=== PATIENT | female | born 1960 | race Two or more races ===

== ENCOUNTER 2020-01-03 13:58 | Emergency (ER) | payer OTHER ==
[2020-01-03] MEDS ORDERED: VALACYCLOVIR HCL 500 MG TABLET PO ONE (14:57)
--- NOTE | 2020-01-03 14:59 | ER Document Report ---
HPI - HPI Patient complains to provider of: rash to perineum Time Seen by Provider: 01/03/20 14:20 Onset: Last week Onset/Duration: Persistent Quality of pain: Burning Pain Level: 2 Context: Patient presents complaining of discomfort with rash to the perineum for the past week. Patient denies any fever, nausea or vomiting. Patient denies any concerns about STI. Patient states she was using [id number] yeast infection cream without improvement of her symptoms. Associated Symptoms: Other - Rash to perineum. denies: Nausea, Vomiting Exacerbated by: Denies Relieved by: Denies Similar symptoms previously: No Recently seen / treated by doctor: No - ROS ROS below otherwise negative: Yes Systems Reviewed and Negative: Yes All other systems reviewed and negative - CONSTITUTIONAL Constitutional: DENIES: Fever - GASTROINTESTINAL Gastrointestinal: DENIES: Abdominal Pain, Nausea - URINARY Urinary: DENIES: Dysuria - DERM Skin Color: Normal Skin Problems: Rash Past Medical History - General Information source: Patient - Social History Smoking Status: Current Every Day Smoker Frequency of alcohol use: None Drug Abuse: None Lives with: Family Family History: Reviewed & Not Pertinent Pulmonary Medical History: Reports: Hx Asthma Surgical Hx: Negative Vertical Provider Document - CONSTITUTIONAL Agree With Documented VS: Yes Exam Limitations: No Limitations General Appearance: WD/WN, No Apparent Distress - HEENT HEENT: Atraumatic, Normocephalic - NECK Neck: Normal Inspection - RESPIRATORY Respiratory: Breath Sounds Normal, No Respiratory Distress - CARDIOVASCULAR Cardiovascular: Regular Rate, Regular Rhythm - REPRODUCTIVE Female Genitalia: Abnormal Inspection - Small vesicular lesion with scattered shallow ulcerations, area of confluent ulceration to left labia Notes: PCT Genevieve is standby - BACK Back: Normal Inspection - MUSCULOSKELETAL/EXTREMETIES Musculoskeletal/Extremeties: MAEW - NEURO Level of Consciousness: Awake, Alert, Appropriate Motor/Sensory: No Motor Deficit - DERM Integumentary: Warm, Dry, Rash - See above Course - Re-evaluation Re-evalutation: 01/03/20 Patient with rash worrisome for genital herpes, culture has been taken and antiviral medication initiated. Patient encouraged to follow-up with primary doctor for follow-up. Good return precautions discussed with patient. - Vital Signs Vital signs: Temp Pulse Resp BP Pulse Ox 97.5 F 73 18 149/86 H 96 01/03/20 14:15 01/03/20 14:15 01/03/20 14:15 01/03/20 14:15 01/03/20 14:15 - Laboratory Laboratory results interpreted by me: 01/03/20 15:12 Labs- All tests 24 hr 01/03/20 14:55 Bacteria (Wet Prep) 4+ BACTERIA SEEN Trichomonas (Wet Prep) NO TRICHOMONAS SEEN Vaginal WBC 4+ WBCS SEEN Vaginal RBC 3+ RBCS SEEN Vaginal Yeast NO YEAST SEEN Discharge - Discharge Clinical Impression: Bacterial vaginosis, Skin lesion Condition: Stable Disposition: HOME, SELF-CARE Instructions: Genital Herpes ([facility]), Metronidazole ([facility]), Vaginosis, Bacterial ([facility]) Additional Instructions: Return immediately for any new or worsening symptoms Followup with your primary care provider, call tomorrow to make a followup appointment Cultures are pending, we will call if you need any different treatment Prescriptions: Metronidazole [Flagyl 500 mg Tablet] 500 mg PO BID #14 tablet Valacyclovir HCl [Valtrex] 1,000 mg PO TID #42 tablet Referrals: PARKER MONGE PA-C [Primary Care Provider] - Follow up as needed
[2020-01-03 15:09] LABS: BACTERIA (WET MOUNT) 4+ BACTERIA SEEN; RBCS (WET MOUNT) 3+ RBCS SEEN; T.VAGINALIS (WET MOUNT) NO TRICHOMONAS SEEN; WBCS (WET MOUNT) 4+ WBCS SEEN; YEAST (WET MOUNT) NO YEAST SEEN
[2020-01-03] MEDS ORDERED: METRONIDAZOLE 500 MG TABLET PO ONE (15:14)
[2020-01-03 15:49] VITALS: BP 151/84
[2020-01-03 17:40] LABS: CHLAM PCR NOT DETECTED (NOT DETECT)
== END 2020-01-03 15:49 | disposition home or self-care (01) ==
LOC: ER 13:58
DX: N76.0 Acute vaginitis (principal); B96.89 Other specified bacterial agents as the cause of diseases classified elsewhere; R21 Rash and other nonspecific skin eruption; F17.200 Nicotine dependence, unspecified, uncomplicated
CPT/HCPCS: 87210; 87250; 87491; 87591; 99283